=== PATIENT | female | born 1950 | race Caucasian/White ===

== ENCOUNTER → 2019-06-30 | Outpatient (CLI) | payer MEDICARE, BC ==
[~2019-06-30] MED LIST: ALPR0.5T7 PO; ATOR40TA PO; CHOL200078 PO; CITA10TA4 PO; OMNIPAQUE 350 MG/ML, 150 ML BOTTLE ONE
== END | disposition home or self-care (01) ==
LOC: RAD 13:26
PROVIDERS: ATTEND Obstetrics & Gynecology
DX: K57.30 Diverticulosis of large intestine without perforation or abscess without bleeding (principal); R19.00 Intra-abdominal and pelvic swelling, mass and lump, unspecified site; R19.07 Generalized intra-abdominal and pelvic swelling, mass and lump
CPT/HCPCS: 74270; Q9967

== ENCOUNTER 2019-08-06 13:52 | Outpatient (CLI) | payer MEDICARE, BC ==
[~2019-08-06 13:52] MED LIST changes: -OMNIPAQUE 350 MG/ML, 150 ML BOTTLE ONE
[2019-08-14] MEDS ORDERED: TRAM50TA2 PO ×2 (12:23→14:28)
[2019-08-14] MEDS ORDERED: METO-93 PO (12:23)
[2019-08-14] MEDS ORDERED: METO25TA35 PO (14:21)
== END 2019-08-06 23:59 | disposition home or self-care (01) ==
LOC: STAR 13:52
PROVIDERS: ATTEND Obstetrics & Gynecology
DX: Z01.818 Encounter for other preprocedural examination (principal); R19.00 Intra-abdominal and pelvic swelling, mass and lump, unspecified site; R19.07 Generalized intra-abdominal and pelvic swelling, mass and lump
CPT/HCPCS: 71046; 93005

== ENCOUNTER → 2019-08-07 | Outpatient (CLI) | payer MEDICARE, BC ==
[~2019-08-07] MED LIST changes: +METO-93 PO; +METO25TA35 PO; +TRAM50TA2 PO
== END | disposition home or self-care (01) ==
LOC: STAR 08:00
PROVIDERS: ATTEND Obstetrics & Gynecology
DX: Z01.818 Encounter for other preprocedural examination (principal); R19.00 Intra-abdominal and pelvic swelling, mass and lump, unspecified site; R19.07 Generalized intra-abdominal and pelvic swelling, mass and lump
CPT/HCPCS: 71046